=== PATIENT | female | born 1925 | race Caucasian/White ===

== ENCOUNTER 2016-11-29 09:20 | Emergency (ER) | payer MEDICARE, BC ==
[~2016-11-29] VITALS: Ht 152.4 cm; Wt 58.2 kg
[~2016-11-29 09:20] MED LIST: ASPI81TA82 PO; MULT-65 PO
[2016-11-29 09:27] VITALS: BP 152/73; PULSE 73; RESP 16; TEMP 98.3; O2SAT 96
[2016-11-29] MEDS ORDERED: MULT-120 PO (09:43)
[2016-11-29] MEDS ORDERED: ASPI1TAB69 PO (09:43)
[2016-11-29] MEDS ORDERED: SODIUM CHLORIDE 0.9% FLUSH 10 ML FLUSH IV FLUSH PRN (09:45)
[2016-11-29 09:52] VITALS: BP 164/80; PULSE 71; RESP 18; O2SAT 98
--- NOTE | 2016-11-29 09:53 | PD ---
HPI Chief Complaint: Back/ Neck Pain or Injury Time Seen by Provider: 09:37 Travel History International Travel<30 days: No Contact w/Intl Traveler<30days: No Traveled to known affect area: No History of Present Illness HPI This is an 89-year-old female who presents to the emergency department with onset of right back pain, constant, moderate severity worse with movement of her leg that started when she was sleeping overnight. She says her pain subsided some when she took 2 aspirin but then she developed lightheadedness and felt like she was going to faint which concerned her so she came to the emergency department. She denies any chest pain, shortness of breath, vomiting or fever. She denies any numbness or weakness of her legs. PFSH Past Medical History Hx Anticoagulant Therapy: Yes (asa 81 mg) Diminished Hearing: No Inguinal Hernia: Yes ?: Not Menopausal: Yes Past Surgical History Abdominal Surgery: Yes (left inguinal hernia) Social History Alcohol Use: Yes (occ) Tobacco Use: No (QUIT 40YRS AGO) Substance Use: No Allergies-Medications (Allergen,Severity, Reaction): Coded Allergies: Biaxin (Verified Allergy, Severe, RASH, 11/29/16) Lipitor (Verified Allergy, Severe, LEG PAIN, 11/29/16) Zetia (Verified Allergy, Intermediate, TACHYCARDIA, 11/29/16) Omeprazole (Verified Allergy, Unknown, unknown, 11/29/16) Cipro (Verified Adverse Reaction, Severe, "DIZZY", 11/29/16) Meclizine (Verified Adverse Reaction, Intermediate, MORE DIZZY , 11/29/16) Red Dyes - Various (Verified Adverse Reaction, Intermediate, DIZZY/RASH, ) Uncoded Allergies: PCE (Allergy, Severe, RASH, 11/09/11) Q TUSS (Allergy, Severe, NAUSEA, 11/09/11) Reported Meds & Prescriptions Reported Meds & Active Scripts Active Reported Aspirin 81 Mg Tabdr 81 Mg PO DAILY Multivitamin Women (Multiple Vitamins W/ Minerals) 1 Tab Tab 1 Tab PO DAILY Review of Systems Except as stated in HPI: all other systems reviewed are Neg Physical Exam Narrative GENERAL:Well appearing, no acute distress SKIN: Focused skin assessment warm and dry. HEAD: Atraumatic. Normocephalic. EYES: Pupils equal and round. No injection or drainage. ENT: Moist mucous membranes NECK: Trachea midline. CARDIOVASCULAR: Regular rate and rhythm. No murmur appreciated. RESPIRATORY: Clear to auscultation. Breath sounds equal bilaterally. GASTROINTESTINAL: Abdomen soft, non-tender, nondistended. MUSCULOSKELETAL: Tender to palpation along the right sacroiliac joint with pain with flexion at the right hip NEUROLOGICAL: Awake and alert. No obvious cranial nerve deficits. Moving all extremities. PSYCHIATRIC: Appropriate mood and affect; insight and judgment normal. Data Data Last Documented VS Vital Signs Date Time Temp Pulse Resp B/P Pulse Ox O2 Delivery O2 Flow Rate FiO2 11/29/16 09:52 71 18 164/80 98 Room Air 11/29/16 09:27 98.3 Orders Complete Blood Count With Diff (11/29/16 09:44) Comprehensive Metabolic Panel (11/29/16 09:44) Ct Abd/Pel W/O Iv Contrast (11/29/16 09:44) Iv Access Insert/Monitor (11/29/16 09:44) Ecg Monitoring (11/29/16 09:44) Oximetry (11/29/16 09:44) Sodium Chloride 0.9% Flush (Ns Flush) (11/29/16 09:45) Ct Lumb Spine W/O Contrast (11/29/16 ) Labs Laboratory Tests Test 11/29/16 09:50 White Blood Count 9.5 TH/MM3 Red Blood Count 4.56 MIL/MM3 Hemoglobin 13.0 GM/DL Hematocrit 39.3 % Mean Corpuscular Volume 86.2 FL Mean Corpuscular Hemoglobin 28.6 PG Mean Corpuscular Hemoglobin 33.2 % Concent Red Cell Distribution Width 13.6 % Platelet Count 216 TH/MM3 Mean Platelet Volume 8.9 FL Neutrophils (%) (Auto) 86.0 % Lymphocytes (%) (Auto) 5.9 % Monocytes (%) (Auto) 4.4 % Eosinophils (%) (Auto) 0.8 % Basophils (%) (Auto) 2.9 % Neutrophils # (Auto) 8.1 TH/MM3 Lymphocytes # (Auto) 0.6 TH/MM3 Monocytes # (Auto) 0.4 TH/MM3 Eosinophils # (Auto) 0.1 TH/MM3 Basophils # (Auto) 0.3 TH/MM3 CBC Comment DIFF FINAL Differential Comment Sodium Level 141 MEQ/L Potassium Level 4.1 MEQ/L Chloride Level 105 MEQ/L Carbon Dioxide Level 29.3 MEQ/L Anion Gap 7 MEQ/L Blood Urea Nitrogen 15 MG/DL Creatinine 1.30 MG/DL Estimat Glomerular Filtration 39 ML/MIN Rate Random Glucose 146 MG/DL Calcium Level 8.5 MG/DL Total Bilirubin 0.4 MG/DL Aspartate Amino Transf 19 U/L (AST/SGOT) Alanine Aminotransferase 19 U/L (ALT/SGPT) Alkaline Phosphatase 58 U/L Total Protein 7.1 GM/DL Albumin 3.3 GM/DL MDM Medical Decision Making Medical Screen Exam Complete: Yes Emergency Medical Condition: Yes Interpretation(s) Afebrile, no tachycardia, hypertensive No leukocytosis 86% neutrophils Mild renal insufficiency Last 24 hours Impressions Abdomen/Pelvis CT 11/29/16 0944 Signed Impressions: Service Date/Time: November 09:54 - CONCLUSION: 1. The kidneys are unremarkable in appearance with no renal calculi or obstruction. 2. Multiple low attenuation hepatic lesions many of which may represent cysts. One lesion in the dome of the right lobe this could criteria for simple cyst and is indeterminate and could represent a solid mass. 3. Unremarkable bowel gas pattern. Jeremiah Levi MD Lumbar Spine CT 11/29/16 0000 Signed Impressions: Service Date/Time: November 09:54 - CONCLUSION: There is facet arthrosis and mild degenerative disc disease. However, no significant spinal canal stenosis is seen. There is mild neural foraminal narrowing. The bones are undermineralized but no compression fracture is seen. Patricio Parada MD Differential Diagnosis Compression fracture, disc herniation, sacroiliitis, kidney stone, degenerative disc disease Narrative Course This is an 89-year-old female who presents to the emergency department with right lower back pain that radiates down the back of her right leg. I suspect this is a lumbosacral radiculopathy. Given she is reporting some lightheadedness, labs were obtained and a CT abdomen and pelvis and CT lumbar spine were obtained all of which are reassuring. Patient will be discharged home Diagnosis Primary Impression: Lumbosacral radiculopathy Additional Impression: Liver mass Patient Instructions: General Instructions Additional Instructions: If you develop weakness of your legs, difficulty walking, numbness of your legs or your genital or rectal area, loss of your bowel or bladder, or difficulty urinating return to the emergency department immediately. Followup with your primary care physician in one week if your symptoms have not improved. You have a lesion on the dome of your right liver lobe which may be a cyst but should be evaluated by her primary care physician because it could represent a mass Med/Other Pt SpecificInfo: No Change to Meds Disposition: 01 DISCHARGE HOME Condition: Stable Savita Nunn MD Nov 29, 2016 09:53
[2016-11-29 09:57] LABS: AUTOMATED NEUTROPHIL # 8.1 TH/MM3 (1.8-7.7); BASOPHIL # 0.3 TH/MM3 (0-0.2); BASOPHIL % 2.9 % (0.0-2.0); EOSINOPHIL # 0.1 TH/MM3 (0-0.4); EOSINOPHIL % 0.8 % (0.0-4.0); HEMATOCRIT 39.3 % (35.0-46.0); LYMPH % 5.9 % (9.0-44.0); LYMPHOCYTE # 0.6 TH/MM3 (1.0-4.8); MEAN CELL VOLUME 86.2 FL (80.0-100.0); MEAN CORPUSCULAR HEMOGLOBIN 28.6 PG (27.0-34.0); MEAN CORPUSCULAR HGB CONC 33.2 % (32.0-36.0); MONO % 4.4 % (0.0-8.0); PLATELET COUNT 216 TH/MM3 (150-450); RED BLOOD COUNT 4.56 MIL/MM3 (4.00-5.30); RED CELL DISTRIBUTION WIDTH 13.6 % (11.6-17.2); WHITE BLOOD COUNT 9.5 TH/MM3 (4.0-11.0)
[2016-11-29 10:00] LABS: HEMO FLAGS DIFF FINAL
[2016-11-29 10:03] LABS: CHLORIDE 105 MEQ/L (98-107); POTASSIUM 4.1 MEQ/L (3.5-5.1); SODIUM (NA) 141 MEQ/L (136-145)
[2016-11-29 10:06] LABS: ANION GAP 7 MEQ/L (5-15); BICARBONATE 29.3 MEQ/L (21.0-32.0)
[2016-11-29 10:07] LABS: BLOOD UREA NITROGEN 15 MG/DL (7-18)
[2016-11-29 10:09] LABS: ALT (GPT) 19 U/L (10-53)
[2016-11-29 10:10] LABS: AST (GOT) 19 U/L (15-37); GLOMERULAR FILTRATION RATE 39 ML/MIN (>89)
[2016-11-29 10:11] LABS: TOTAL BILIRUBIN ADULT 0.4 MG/DL (0.2-1.0)
[2016-11-29 10:12] LABS: ALKALINE PHOSPHATASE 58 U/L (45-117)
--- NOTE | 2016-11-29 10:34 | RADHPO ---
EXAM DATE/TIME: 11/29/2016 09:54 [facility] COMPARISON: No previous studies available for comparison. INDICATIONS : Right flank and low back pain. ORAL CONTRAST: No oral contrast ingested. RADIATION DOSE: 9.48 CTDIvol (mGy) MEDICAL HISTORY : Hernia, inguinal. SURGICAL HISTORY : None. ENCOUNTER: Initial ACUITY: 1 day PAIN SCALE: 8/10 LOCATION: Right flank TECHNIQUE: Volumetric scanning of the abdomen and pelvis was performed. Using automated exposure control and ad justment of the mA and/or kV according to patient size, radiation dose was kept as low as reasonably achievable to obtain optimal diagnostic quality images. FINDINGS: LOWER LUNGS: The visualized lower lungs are clear. LIVER: Normal in size and shape. There are multiple low attenuation lesions likely representing cysts. The l argest of these is in the left lobe measuring approximately 1.9 x 1.5 cm. There is a higher density l ow attenuation lesion in the dome of the right lobe measuring 3 x 2 cm which does not meet the criter ia for a cyst. The gallbladder is unremarkable in appearance. There is no dilation of the biliary sergio e. No calcified gallstones. SPLEEN: Normal size without lesion. PANCREAS: Within normal limits. KIDNEYS: Normal in size and shape. There is no mass, stone, or hydronephrosis. ADRENAL GLANDS: Within normal limits. VASCULAR: Sclerotic changes are noted with mild dilatation calcification. There is no focal aneurysm. There is mild dilatation of the common iliac arteries as well. BOWEL/MESENTERY: The stomach, small bowel, and colon demonstrate no acute abnormality. There is no free intraperitone al air or fluid. ABDOMINAL WALL: Within normal limits. RETROPERITONEUM: There is no lymphadenopathy. BLADDER: No wall thickening or mass. REPRODUCTIVE: Within normal limits. INGUINAL: There is no lymphadenopathy or hernia. MUSCULOSKELETAL: Within normal limits for patient age. CONCLUSION: 1. The kidneys are unremarkable in appearance with no renal calculi or obstruction. 2. Multiple low attenuation hepatic lesions many of which may represent cysts. One lesion in the dome of the right lobe this could criteria for simple cyst and is indeterminate and could represent a winston id mass. 3. Unremarkable bowel gas pattern. Jeremiah Levi MD on November 29, 2016 at 10:27 Board Certified Radiologist. This report was verified electronically.
--- NOTE | 2016-11-29 11:26 | RADHPO ---
EXAM DATE/TIME: 11/29/2016 09:54 [facility] COMPARISON: CT ABDOMEN & PELVIS W/O CONTRAST, November 29, 2016, 9:54. INDICATIONS : Right flank and low back pain. RADIATION DOSE: ; Reconstructed from previous dataset MEDICAL HISTORY : Hernia, inguinal. SURGICAL HISTORY : None. ENCOUNTER: Initial ACUITY: 1 day PAIN SCALE: 8/10 LOCATION: Right lumbar TECHNIQUE: Volumetric scanning of the lumbar spine was performed. Multiplanar reconstructions in the sagittal, coronal and oblique axial planes were performed. Using automated exposure control and adjustment of the mA and/or kV according to patient size, radiation dose was kept as low as reasonably achievable t o obtain optimal diagnostic quality images. FINDINGS: VERTEBRAE: There is mild height loss of the superior endplate of L3 but no fracture is seen. The bones appear un dermineralized. ALIGNMENT: No anterolisthesis or retrolisthesis is present. T12-L1: No disc herniation, canal stenosis, or neural foraminal stenosis is identified. L1-L2: There is mild facet hypertrophy. No disc herniation, canal stenosis, or neuroforaminal stenosis is vi sualized. L2-L3: There is mild facet and ligamentum flavum hypertrophy. There is a mild diffuse disc bulge. Otherwise, no definite disc herniation, canal stenosis, or neural foraminal narrowing is identified. L3-L4: There is a mild diffuse disc bulge with mild facet and ligamentum flavum hypertrophy. No definite can al stenosis is visualized. There is mild narrowing of the neural foramina. L4-L5: There is a mild diffuse disc bulge with mild facet hypertrophy. No disc herniation or definite canal stenosis is seen. There is mild neural foraminal narrowing bilaterally. L5-S1: There is mild facet hypertrophy. No disc herniation, canal stenosis, or neural foraminal narrowing is visualized. CONCLUSION: There is facet arthrosis and mild degenerative disc disease. However, no significant spinal canal kavitha nosis is seen. There is mild neural foraminal narrowing. The bones are undermineralized but no compre ssion fracture is seen. Patricio Parada MD on November 29, 2016 at 11:16 Board Certified Radiologist. This report was verified electronically.
[2016-11-29 11:51] VITALS: BP 145/88
== END 2016-11-29 12:05 | disposition home or self-care (01) ==
LOC: PHED 09:20
DX: M54.17 Radiculopathy, lumbosacral region (principal); R16.0 Hepatomegaly, not elsewhere classified; R42 Dizziness and giddiness; Z79.01 Long term (current) use of anticoagulants
CPT/HCPCS: 72131; 74176; 80053; 85025

== ENCOUNTER 2016-12-15 10:19 | Emergency (ER) | payer MEDICARE, BC ==
[~2016-12-15] VITALS: Ht 162.6 cm; Wt 58.5 kg
[~2016-12-15 10:19] MED LIST changes: +ASPI1TAB69 PO; -ASPI81TA82 PO; +MULT-120 PO; -MULT-65 PO
[2016-12-15 10:28] VITALS: BP 166/84; PULSE 77; RESP 16; TEMP 98.8; O2SAT 95
[2016-12-15] MEDS ORDERED: ASPI325T PO (11:08)
--- NOTE | 2016-12-15 11:12 | PD ---
HPI . Left leg pain Chief Complaint: Musculoskeletal Complaint Time Seen by Provider: 10:46 Travel History International Travel<30 days: No Contact w/Intl Traveler<30days: No Traveled to known affect area: No History of Present Illness HPI Patient presents complaining with left leg pain. Onset is 2 weeks. Symptoms are getting better. She states that she has been taking aspirin, 2 4 times a day with some relief of her symptoms. However, her symptoms have persisted. She and her family are worried that she has a blood clot. The pain is described as aching and is rated as 5/10. Patient reports no history of cancer. She has not been bedridden or immobilized. She denies any previous history of DVT. PFSH Past Medical History Hx Anticoagulant Therapy: Yes (asa 81mg) Diminished Hearing: No Inguinal Hernia: Yes ?: Not Menopausal: Yes Past Surgical History Abdominal Surgery: Yes (left inguinal hernia) Social History Alcohol Use: Yes (occ) Tobacco Use: No (QUIT 40YRS AGO) Substance Use: No Allergies-Medications (Allergen,Severity, Reaction): Coded Allergies: Biaxin (Verified Allergy, Severe, RASH, 12/15/16) Lipitor (Verified Allergy, Severe, LEG PAIN, 12/15/16) Zetia (Verified Allergy, Intermediate, TACHYCARDIA, 12/15/16) Omeprazole (Verified Allergy, Unknown, unknown, 12/15/16) Cipro (Verified Adverse Reaction, Severe, "DIZZY", 12/15/16) Meclizine (Verified Adverse Reaction, Intermediate, MORE DIZZY , 12/15/16) Red Dyes - Various (Verified Adverse Reaction, Intermediate, DIZZY/RASH, ) Uncoded Allergies: PCE (Allergy, Severe, RASH, 12/15/16) . Q TUSS (Allergy, Severe, NAUSEA, 12/15/16) . Reported Meds & Prescriptions Reported Meds & Active Scripts Active Reported Aspirin 325 Mg Tab 325 Mg PO DAILY Multivitamin Women (Multiple Vitamins W/ Minerals) 1 Tab Tab 1 Tab PO DAILY Review of Systems Cardiovascular: No: Chest Pain or Discomfort Respiratory: No: Shortness of Breath Skin: Positive Lesions Physical Exam Narrative GENERAL: Awake and alert and in no acute distress. SKIN: Warm and dry. She has some scattered skin lesions which look like typical lesions associated with aging. HEAD: Atraumatic. Normocephalic. EYES: Pupils equal and round. NECK: Trachea midline. CARDIOVASCULAR: Regular rate and rhythm. RESPIRATORY: No accessory muscle use. MUSCULOSKELETAL: No obvious deformities. No edema. There is no swelling of her left lower extremity. No pitting edema. No tenderness to palpation along the veins. She does have varicose veins bilaterally. NEUROLOGICAL: Awake and alert. No obvious cranial nerve deficits. Motor grossly within normal limits. Normal speech. PSYCHIATRIC: Appropriate mood and affect; insight and judgment normal. Data Data Last Documented VS Vital Signs Date Time Temp Pulse Resp B/P Pulse Ox O2 Delivery O2 Flow Rate FiO2 12/15/16 10:28 98.8 77 16 166/84 95 Orders Ed Poc Ultrasound (12/15/16 10:47) MDM Medical Decision Making Medical Screen Exam Complete: Yes Emergency Medical Condition: Yes Differential Diagnosis Differential diagnosis of leg pain includes but is not limited to lumbar radiculopathy, arthritis, myalgias, DVT. Narrative Course Patient presents for the evaluation of left lower extremity pain. She her family are concerned that she has a DVT. Wells criteria for DVT is negative. Procedures Procedure Narrative Venous ultrasound of the left lower extremity was done and showed a compressible vein from the left groin to the left popliteal fossa. Diagnosis Primary Impression: Pain in left maddox Patient Instructions: General Instructions, Leg Pain (ED) Additional Instructions: Continue the aspirin Med/Other Pt SpecificInfo: No Change to Meds Disposition: 01 DISCHARGE HOME Condition: Stable Mera Tomas MD December 15, 2016 11:12
== END 2016-12-15 12:01 | disposition home or self-care (01) ==
LOC: PHED 10:19
DX: M79.662 Pain in left lower leg (principal); Z79.82 Long term (current) use of aspirin
CPT/HCPCS: 99283

== ENCOUNTER 2017-05-26 19:30 | Emergency (ER) | payer MEDICARE, BC ==
[~2017-05-26 19:30] MED LIST changes: -ASPI1TAB69 PO; +ASPI325T PO
[2017-05-26 19:35] VITALS: BP 213/91; PULSE 75; RESP 20; TEMP 98.7; O2SAT 99
[2017-05-26] MEDS ORDERED: HYDR25TA5 PO (20:07)
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
[2017-05-26] MEDS ORDERED: HYDROCHLOROTHIAZIDE 25 MG TAB PO ONE (20:15)
[2017-05-26] MEDS ORDERED: MULT-65 PO (20:28)
[2017-05-26] MEDS ORDERED: ASPI325T PO (20:28)
[2017-05-26] MEDS ORDERED: PANT40TA3 PO (20:30)
[2017-05-26 20:42] VITALS: BP 169/81
[2017-05-26] MEDS ORDERED: ONDANSETRON ODT 4 MG TAB PO ONE (20:45)
[2017-06-05] MEDS ORDERED: ASPI81TA11 PO (11:52)
[2017-06-05] MEDS ORDERED: CLON.1 PO (11:52)
[2017-06-05] MEDS ORDERED: HYDR-3799 PO (11:52)
== END 2017-05-26 21:24 | disposition home or self-care (01) ==
LOC: PHED 19:30
DX: I10 Essential (primary) hypertension (principal); Z87.891 Personal history of nicotine dependence
CPT/HCPCS: 99283

== ENCOUNTER 2017-06-03 21:58 | Observation (INO) | payer MEDICARE, BC ==
[~2017-06-03] VITALS: Ht 152.4 cm; Wt 58.0 kg
[~2017-06-03 21:58] MED LIST changes: +HYDR25TA5 PO; -MULT-120 PO; +MULT-65 PO; +PANT40TA3 PO
[2017-06-03 21:59] VITALS: BP 237/109; PULSE 68; RESP 18; TEMP 97.8; O2SAT 97
--- NOTE | 2017-06-03 22:26 | PD ---
Physical Exam Date Seen by Provider: Jun 03, 2017 Time Seen by Provider: 22:25 Narrative 89-year-old white female presents to emergency department with complaint of elevated blood pressure today. She states that her blood pressure was normal yesterday. She started feeling ill today. She's had a headache, congestion or ears, and general malaise. She's been feeling hot and cold. She also states that she would like to have her pancreas checked because she's had a history of pancreatitis and has not been able to follow-up with GI and have an upper endoscopy. She denies any fever or chills. No nausea vomiting today. No abdominal pain. No urine symptoms. No chest pain or shortness of breath. No focal numbness, tingling or weakness. Vital signs reviewed. Pt waiting for bed placement. Data Data Last Documented VS Vital Signs Date Time Temp Pulse Resp B/P (MAP) Pulse Ox O2 Delivery O2 Flow Rate FiO2 06/03/17 21:59 97.8 68 18 237/109 (151) 97 Room Air [facility] Medical Record Reviewed: No Supervised Visit with ROSELIA: Kike Martin Jun 03, 2017 22:26
--- NOTE | 2017-06-03 22:26 | PD ---
Physical Exam Date Seen by Provider: Jun 03, 2017 Time Seen by Provider: 22:25 Narrative 89-year-old white female presents to emergency department with complaint of elevated blood pressure today. She states that her blood pressure was normal yesterday. She started feeling ill today. She's had a headache, congestion or ears, and general malaise. She's been feeling hot and cold. She also states that she would like to have her pancreas checked because she's had a history of pancreatitis and has not been able to follow-up with GI and have an upper endoscopy. She denies any fever or chills. No nausea vomiting today. No abdominal pain. No urine symptoms. No chest pain or shortness of breath. No focal numbness, tingling or weakness. Vital signs reviewed. Pt waiting for bed placement. Data Data Last Documented VS Vital Signs Date Time Temp Pulse Resp B/P (MAP) Pulse Ox O2 Delivery O2 Flow Rate FiO2 06/03/17 21:59 97.8 68 18 237/109 (151) 97 Room Air [facility] Medical Record Reviewed: No Supervised Visit with ROSELIA: Kike Martin Jun 03, 2017 22:26
--- NOTE | 2017-06-03 22:26 | PD ---
Physical Exam Date Seen by Provider: Jun 03, 2017 Time Seen by Provider: 22:25 Narrative 89-year-old white female presents to emergency department with complaint of elevated blood pressure today. She states that her blood pressure was normal yesterday. She started feeling ill today. She's had a headache, congestion or ears, and general malaise. She's been feeling hot and cold. She also states that she would like to have her pancreas checked because she's had a history of pancreatitis and has not been able to follow-up with GI and have an upper endoscopy. She denies any fever or chills. No nausea vomiting today. No abdominal pain. No urine symptoms. No chest pain or shortness of breath. No focal numbness, tingling or weakness. Vital signs reviewed. Pt waiting for bed placement. Data Data Last Documented VS Vital Signs Date Time Temp Pulse Resp B/P (MAP) Pulse Ox O2 Delivery O2 Flow Rate FiO2 06/03/17 21:59 97.8 68 18 237/109 (151) [address] [facility] Medical Record Reviewed: No Supervised Visit with ROSELIA: Kike Martin Jun 03, 2017 22:26
[2017-06-03 23:01] VITALS: BP 207/98; PULSE 74; RESP 16; O2SAT 97
[2017-06-03] MEDS ORDERED: ONDANSETRON HCL 4 MG/2 ML VIAL IVP ONE ×2 (23:15)
[2017-06-03] MEDS ORDERED: MORPHINE SULFATE 4 MG/ML INJ IV PUSH ONE ×2 (23:15)
[2017-06-03] MEDS ORDERED: SODIUM CHLORIDE 0.9% FLUSH 10 ML FLUSH IV FLUSH PRN ×2 (23:15)
[2017-06-03 23:30] LABS: AUTOMATED NEUTROPHIL # 2.8 TH/MM3 (1.8-7.7); BASOPHIL % 0.8 % (0.0-2.0); EOSINOPHIL # 0.1 TH/MM3 (0-0.4); EOSINOPHIL % 2.1 % (0.0-4.0); HEMATOCRIT 36.9 % (35.0-46.0); HEMOGLOBIN 12.3 GM/DL (11.6-15.3); LYMPH % 29.2 % (9.0-44.0); LYMPHOCYTE # 1.4 TH/MM3 (1.0-4.8); MEAN CELL VOLUME 87.4 FL (80.0-100.0); MEAN CORPUSCULAR HEMOGLOBIN 29.1 PG (27.0-34.0); MEAN CORPUSCULAR HGB CONC 33.3 % (32.0-36.0); MEAN PLATELET VOLUME 9.3 FL (7.0-11.0); MONO % 7.7 % (0.0-8.0); MONOCYTE # 0.4 TH/MM3 (0-0.9); NEUT % 60.2 % (16.0-70.0); PLATELET COUNT 208 TH/MM3 (150-450); RED BLOOD COUNT 4.23 MIL/MM3 (4.00-5.30); RED CELL DISTRIBUTION WIDTH 14.3 % (11.6-17.2); WHITE BLOOD COUNT 4.6 TH/MM3 (4.0-11.0)
[2017-06-03 23:36] VITALS: BP 175/85; PULSE 65; RESP 16; O2SAT 96; O2SAT 99
--- NOTE | 2017-06-03 23:59 | PD ---
HPI Chief Complaint: Hypertension Time Seen by Provider: 22:56 Travel History International Travel<30 days: No Contact w/Intl Traveler<30days: No Traveled to known affect area: No History of Present Illness HPI 89-year-old female arrives by private auto. She reports high blood pressure today. Additional complaints include a vague sense of discomfort in the epigastrium which she attributes to pancreatitis and states that she is due for an endoscopy. She also reports a headache, potentially right otitis media and generalized weakness. She denies fever. Has no history of hypertension. PFSH Past Medical History Hx Anticoagulant Therapy: Yes (ASA) High Cholesterol: Yes Diminished Hearing: No Hypertension: Yes Inguinal Hernia: Yes Tetanus Vaccination: > 5 Years LMP: menapause Menopausal: Yes Past Surgical History Abdominal Surgery: Yes (left inguinal hernia) Social History Alcohol Use: No Tobacco Use: No (QUIT 40YRS AGO) Substance Use: No Allergies-Medications (Allergen,Severity, Reaction): Coded Allergies: atorvastatin (Unverified Allergy, Severe, LEG PAIN, 05/26/17) clarithromycin (Unverified Allergy, Severe, RASH, 05/26/17) ezetimibe (Unverified Allergy, Intermediate, TACHYCARDIA, 05/26/17) omeprazole (Unverified Allergy, Unknown, unknown, 05/26/17) ciprofloxacin (Unverified Adverse Reaction, Severe, "DIZZY", 05/26/17) meclizine (Unverified Adverse Reaction, Intermediate, MORE DIZZY , ) red dye (Unverified Adverse Reaction, Intermediate, DIZZY/RASH, 05/26/17) amlodipine (Verified Adverse Reaction, Unknown, Dizziness, 05/26/17) lightheaded lisinopril (Verified Adverse Reaction, Unknown, Dizziness, 05/26/17) Uncoded Allergies: PCE (Allergy, Severe, RASH, 12/15/16) . Q TUSS (Allergy, Severe, NAUSEA, 12/15/16) . Reported Meds & Prescriptions Reported Meds & Active Scripts Active Hydrochlorothiazide 25 Mg Tab 25 Mg PO DAILY 30 Days Reported Pantoprazole (Pantoprazole Sodium) 40 Mg Tab 40 Mg PO DAILY Multi-Vitamin Daily (Multiple Vitamin) 1 Tab Tab 1 Tab PO DAILY Aspirin 325 Mg Tab 325 Mg PO DAILY Aspirin 325 Mg Tab 325 Mg PO DAILY Review of Systems Except as stated in HPI: all other systems reviewed are Neg General / Constitutional: No: Fever Cardiovascular: No: Chest Pain or Discomfort Respiratory: No: Shortness of Breath, Wheezing Physical Exam Narrative GENERAL: Well-nourished well-developed 89-year-old female no acute distress SKIN: Warm and dry. HEAD: Atraumatic. Normocephalic. EYES: Pupils equal and round. No scleral icterus. No injection or drainage. ENT: No nasal bleeding or discharge. Mucous membranes pink and moist. NECK: Trachea midline. No JVD. CARDIOVASCULAR: Regular rate and rhythm. RESPIRATORY: No accessory muscle use. Clear to auscultation. Breath sounds equal bilaterally. GASTROINTESTINAL: Abdomen soft, non-tender, nondistended. Hepatic and splenic margins not palpable. MUSCULOSKELETAL: Extremities without clubbing, cyanosis, or edema. No obvious deformities. NEUROLOGICAL: Awake and alert. No obvious cranial nerve deficits. Motor grossly within normal limits. Five out of 5 muscle strength in the arms and legs. Normal speech. PSYCHIATRIC: Appropriate mood and affect; insight and judgment normal. Data Data Last Documented VS Vital Signs Date Time Temp Pulse Resp B/P (MAP) Pulse Ox O2 Delivery O2 Flow Rate FiO2 06/03/17 23:36 16 99 Room Air 06/03/17 23:36 65 06/03/17 21:59 97.8 Orders Orders Complete Blood Count With Diff (06/03/17 23:04) Comprehensive Metabolic Panel (06/03/17 23:04) Lipase (06/03/17 23:04) Urinalysis - C+S If Indicated (06/03/17 23:04) Iv Access Insert/Monitor (06/03/17 23:04) Ecg Monitoring (06/03/17 23:04) Oximetry (06/03/17 23:04) Ondansetron Inj (Zofran Inj) (06/03/17 23:15) Sodium Chloride 0.9% Flush (Ns Flush) (06/03/17 23:15) Morphine Inj (Morphine Inj) (06/03/17 23:15) Admit Order (Ed Use Only) (06/04/17 ) Vital Signs (Adult) Q4H (06/04/17 01:36) Activity Bed Rest (06/04/17 01:36) Labs Laboratory Tests Test 06/03/17 23:25 06/04/17 00:50 White Blood Count 4.6 TH/MM3 Red Blood Count 4.23 MIL/MM3 Hemoglobin 12.3 GM/DL Hematocrit 36.9 % Mean Corpuscular Volume 87.4 FL Mean Corpuscular Hemoglobin 29.1 PG Mean Corpuscular Hemoglobin Concent 33.3 % Red Cell Distribution Width 14.3 % Platelet Count 208 TH/MM3 Mean Platelet Volume 9.3 FL Neutrophils (%) (Auto) 60.2 % Lymphocytes (%) (Auto) 29.2 % Monocytes (%) (Auto) 7.7 % Eosinophils (%) (Auto) 2.1 % Basophils (%) (Auto) 0.8 % Neutrophils # (Auto) 2.8 TH/MM3 Lymphocytes # (Auto) 1.4 TH/MM3 Monocytes # (Auto) 0.4 TH/MM3 Eosinophils # (Auto) 0.1 TH/MM3 Basophils # (Auto) 0.0 TH/MM3 CBC Comment DIFF FINAL Differential Comment Blood Urea Nitrogen 19 MG/DL Creatinine 1.07 MG/DL Random Glucose 90 MG/DL Total Protein 7.1 GM/DL Albumin 3.6 GM/DL Calcium Level 8.8 MG/DL Alkaline Phosphatase 51 U/L Aspartate Amino Transf (AST/SGOT) 20 U/L Alanine Aminotransferase (ALT/SGPT) 18 U/L Total Bilirubin 0.4 MG/DL Sodium Level 131 MEQ/L Potassium Level 3.9 MEQ/L Chloride Level 96 MEQ/L Carbon Dioxide Level 24.8 MEQ/L Anion Gap 10 MEQ/L Estimat Glomerular Filtration Rate 48 ML/MIN B-Type Natriuretic Peptide 33 PG/ML Lipase 508 U/L Urine Color COLORLESS Urine Turbidity CLEAR Urine pH 5.0 Urine Specific Huger 1.001 Urine Protein NEG mg/dL Urine Glucose (UA) NEG mg/dL Urine Ketones NEG mg/dL Urine Occult Blood TRACE Urine Nitrite NEG Urine Bilirubin NEG Urine Urobilinogen LESS THAN 2.0 MG/DL Urine Leukocyte Esterase NEG Urine RBC 1 /hpf Urine WBC LESS THAN 1 /hpf Urine Squamous Epithelial Cells <1 /hpf Microscopic Urinalysis Comment CULT NOT INDICATED MDM Medical Decision Making Medical Screen Exam Complete: Yes Emergency Medical Condition: Yes Medical Record Reviewed: Yes Differential Diagnosis pancreatitis, uti, electrolyte imbalance, anemia, renal failure, PNA Narrative Course BP decreased to 174/90 CBC & BMP Diagram 06/03/17 23:25 Total Protein 7.1, Albumin 3.6, Calcium Level 8.8, Alkaline Phosphatase 51, Aspartate Amino Transf (AST/SGOT) 20, Alanine Aminotransferase (ALT/SGPT) 18, Total Bilirubin 0.4 UA: no UTI Lipase 508 Pt reports inability to get outpatient follow up and states she is due for endoscopy/ercp. With elevation of lipase, pt may benefit from admission for ERCP. NO sign of infectious pancreatitis at time of admission. d/w Dr Rees for [facility] advised no [facility] admissions Diagnosis Primary Impression: Pancreatitis Qualified Codes: K85.90 - Acute pancreatitis without necrosis or infection, unspecified Admitting Information Admitting Physician Requests: Observation Ludwin Chávez MD Jun 03, 2017 23:59
[2017-06-04 00:05] LABS: ALBUMIN 3.6 GM/DL (3.4-5.0); ALT (GPT) 18 U/L (10-53); AST (GOT) 20 U/L (15-37); BICARBONATE 24.8 MEQ/L (21.0-32.0); BLOOD UREA NITROGEN 19 MG/DL (7-18); CALCIUM 8.8 MG/DL (8.5-10.1); CHLORIDE 96 MEQ/L (98-107); CREATININE 1.07 MG/DL (0.50-1.00); GLOMERULAR FILTRATION RATE 48 ML/MIN (>89); GLUCOSE,RANDOM 90 MG/DL (74-106); LIPASE 508 U/L (73-393); SODIUM (NA) 131 MEQ/L (136-145)
[2017-06-04 00:07] LABS: ALKALINE PHOSPHATASE 51 U/L (45-117); TOTAL BILIRUBIN ADULT 0.4 MG/DL (0.2-1.0); TOTAL PROTEIN 7.1 GM/DL (6.4-8.2)
[2017-06-04 00:59] LABS: BILIRUBIN, URINE NEG (NEG); BLOOD, URINE TRACE (NEG); GLUCOSE,URINE NEG (NEG); KETONE, URINE NEG (NEG); NITRITE,URINE NEG (NEG); SQUAMOUS EPITHELIAL CELL URINE <1 /hpf (0-5); URINE COLOR COLORLESS (YELLW/STRAW); URINE LEUKOCYTE ESTERASE NEG (NEG)
[2017-06-04] MEDS ORDERED: SODIUM CHLORIDE 0.9% FLUSH 10 ML FLUSH IV FLUSH PRN ×2 (01:45)
[2017-06-04] MEDS ORDERED: NALOXONE HCL 0.4 MG/ML AMP IV PUSH PRN ×2 (01:45)
[2017-06-04] MEDS ORDERED: SENNOSIDES 8.6 MG TAB PO PRN ×2 (01:45)
[2017-06-04] MEDS ORDERED: BISACODYL 10 MG SUPP RECTAL PRN ×2 (01:45)
[2017-06-04] MEDS ORDERED: ONDANSETRON HCL 4 MG/2 ML VIAL IVP PRN ×2 (01:45)
[2017-06-04] MEDS ORDERED: MAGNESIUM HYDROXIDE SUSP 30 ML CUP PO PRN ×2 (01:45)
[2017-06-04] MEDS ORDERED: LACTULOSE SYRUP 20 GM/30 ML CUP PO PRN ×2 (01:45)
[2017-06-04] MEDS: SODIUM CHLOR 0.9% 1000 ML INJ 1,000 ML IV SCH ×6 (03:01→21:14)
--- NOTE | 2017-06-04 03:44 | HHI.HP ---
[facility] Service [facility] Primary Care Physician Jason Berman MD Admission Diagnosis Pancreatitis Diagnoses: Travel History International Travel<30 Days: No Contact w/Intl Traveler <30 Da: No Traveled to Known Affected Are: No History of Present Illness 89-year-old female who presents to the ER due to systolic blood pressure measured at home of 205, found to be 235 systolic sensation to ER. She also reports several week history of vague intermittent epigastric abdominal discomfort, nausea, decreased appetite. She reports some chills she feels due to the weather, however no fevers. Denies any chest pain. She says she was found to have liver cysts on outside imaging, was supposed to have ERCP, but has not followed up yet. patient does have a past history of pancreatitis. Review of Systems Except as stated in HPI: all other systems reviewed are Neg Past Family Social History Past Medical History Hyperlipidemia. Not on medication Pancreatitis. Hypertension. Patient discontinued medication several weeks ago due to thinking it made her feel foggy. Fogginess resolved. Past Surgical History Left inguinal hernia repair Reported Medications Reported Meds & Active Scripts Active Hydrochlorothiazide 25 Mg Tab 25 Mg PO DAILY 30 Days Reported Pantoprazole (Pantoprazole Sodium) 40 Mg Tab 40 Mg PO DAILY Multi-Vitamin Daily (Multiple Vitamin) 1 Tab Tab 1 Tab PO DAILY Aspirin 325 Mg Tab 325 Mg PO DAILY Aspirin 325 Mg Tab 325 Mg PO DAILY Allergies: Coded Allergies: atorvastatin (Unverified Allergy, Severe, LEG PAIN, 05/26/17) clarithromycin (Unverified Allergy, Severe, RASH, 05/26/17) ezetimibe (Unverified Allergy, Intermediate, TACHYCARDIA, 05/26/17) omeprazole (Unverified Allergy, Unknown, unknown, 05/26/17) ciprofloxacin (Unverified Adverse Reaction, Severe, "DIZZY", 05/26/17) meclizine (Unverified Adverse Reaction, Intermediate, MORE DIZZY , ) red dye (Unverified Adverse Reaction, Intermediate, DIZZY/RASH, 05/26/17) amlodipine (Verified Adverse Reaction, Unknown, Dizziness, 05/26/17) lightheaded lisinopril (Verified Adverse Reaction, Unknown, Dizziness, 05/26/17) Uncoded Allergies: PCE (Allergy, Severe, RASH, 12/15/16) . Q TUSS (Allergy, Severe, NAUSEA, 12/15/16) . Family History Mother from [place]. Father from stroke at age 69. Social History Patient quit smoking 40 years ago. Denies any alcohol use. Denies any illicit drugs. Physical Exam Vital Signs Vital Signs Date Time Temp Pulse Resp B/P (MAP) Pulse Ox O2 Delivery O2 Flow Rate FiO2 06/04/17 03:10 06/03/17 23:36 16 99 Room Air 06/03/17 23:36 65 16 175/85 (115) 96 Room Air 06/03/17 23:01 74 16 207/98 (134) 97 Room Air 06/03/17 21:59 97.8 68 18 237/109 (151) 97 Room Air Physical Exam GENERAL: This is a well-nourished, well-developed patient, appears uncomfortable. Alert and oriented 3. SKIN: No rashes, ecchymoses or lesions. Cool and dry. HEAD: Atraumatic. Normocephalic. No temporal or scalp tenderness. EYES: Pupils equal round and reactive. Extraocular motions intact. No scleral icterus. No injection or drainage. ENT: Nose without bleeding, purulent drainage or septal hematoma. Throat without erythema, tonsillar hypertrophy or exudate. Uvula midline. Airway patent. NECK: Trachea midline. No JVD or lymphadenopathy. Supple, nontender, no meningeal signs. CARDIOVASCULAR: Regular rate and rhythm without murmurs, gallops, or rubs. RESPIRATORY: Clear to auscultation. Breath sounds equal bilaterally. No wheezes , rales, or rhonchi. GASTROINTESTINAL: Abdomen soft,. Epigastric tenderness to moderate palpation, which patient reports has been present for several weeks. No hepato- splenomegaly, or palpable masses. No guarding. MUSCULOSKELETAL: Extremities without clubbing, cyanosis, or edema. No joint tenderness, effusion, or edema noted. No calf tenderness. Negative Homans sign bilaterally. NEUROLOGICAL: Awake and alert. Cranial nerves II through XII intact. Motor and sensory grossly within normal limits. Five out of 5 muscle strength in all muscle groups. Normal speech. Laboratory Laboratory Tests Test 06/03/17 23:25 06/04/17 00:50 White Blood Count 4.6 Red Blood Count 4.23 Hemoglobin 12.3 Hematocrit 36.9 Mean Corpuscular Volume 87.4 Mean Corpuscular Hemoglobin 29.1 Mean Corpuscular Hemoglobin Concent 33.3 Red Cell Distribution Width 14.3 Platelet Count 208 Mean Platelet Volume 9.3 Neutrophils (%) (Auto) 60.2 Lymphocytes (%) (Auto) 29.2 Monocytes (%) (Auto) 7.7 Eosinophils (%) (Auto) 2.1 Basophils (%) (Auto) 0.8 Neutrophils # (Auto) 2.8 Lymphocytes # (Auto) 1.4 Monocytes # (Auto) 0.4 Eosinophils # (Auto) 0.1 Basophils # (Auto) 0.0 CBC Comment DIFF FINAL Differential Comment Blood Urea Nitrogen 19 Creatinine 1.07 Random Glucose 90 Total Protein 7.1 Albumin 3.6 Calcium Level 8.8 Alkaline Phosphatase 51 Aspartate Amino Transf (AST/SGOT) 20 Alanine Aminotransferase (ALT/SGPT) 18 Total Bilirubin 0.4 Sodium Level 131 Potassium Level 3.9 Chloride Level 96 Carbon Dioxide Level 24.8 Anion Gap 10 Estimat Glomerular Filtration Rate 48 B-Type Natriuretic Peptide 33 Lipase 508 Urine Color COLORLESS Urine Turbidity CLEAR Urine pH 5.0 Urine Specific Haskell 1.001 Urine Protein NEG Urine Glucose (UA) NEG Urine Ketones NEG Urine Occult Blood TRACE Urine Nitrite NEG Urine Bilirubin NEG Urine Urobilinogen LESS THAN 2.0 Urine Leukocyte Esterase NEG Urine RBC 1 Urine WBC LESS THAN 1 Urine Squamous Epithelial Cells <1 Microscopic Urinalysis Comment CULT NOT INDICATED Result Diagram: 06/03/17232406/03/172324 Caprini VTE Risk Assessment Caprini VTE Risk Assessment: Mod/High Risk (score >= 2) Caprini Risk Assessment Model Point Value = 1 Point Value = 2 Point Value = 3 Point Value = 5 Age 41-60 Minor surgery BMI > 25 kg/m2 Swollen legs Varicose veins or History of unexplained or recurrent spontaneous Oral contraceptives or hormone replacement Sepsis (< 1 month) Serious lung disease, including pneumonia (< 1 month) Abnormal pulmonary function Acute myocardial infarction Congestive heart failure (< 1 month) History of inflammatory bowel disease Medical patient at bed rest Age 61-74 Arthroscopic surgery Major open surgery (> 45 min) Laparoscopic surgery (> 45 min) Malignancy Confined to bed (> 72 hours) Immobilizing plaster cast Central venous access Age >= 75 History of VTE Family history of VTE Factor V Leiden Prothrombin [id number] Lupus anticoagulant Anticardiolipin antibodies Elevated serum homocysteine Heparin-induced thrombocytopenia Other congenital or acquired thrombophilia Stroke (< 1 month) Elective arthroplasty Hip, pelvis, or leg fracture Acute spinal cord injury (< 1 month) Prophylaxis Regimen Total Risk Factor Score Risk Level Prophylaxis Regimen 0-1 Low Early ambulation 2 Moderate Order ONE of the following: *Sequential Compression Device (SCD) *Heparin 5000 units SQ BID 3-4 Higher Order ONE of the following medications: *Heparin 5000 units SQ TID *Enoxaparin/Lovenox 40 mg SQ daily (WT < 150 kg, CrCl > 30 mL/min) *Enoxaparin/Lovenox 30 mg SQ daily (WT < 150 kg, CrCl > 10-29 mL/min) *Enoxaparin/Lovenox 30 mg SQ BID (WT < 150 kg, CrCl > 30 mL/min) AND/OR *Sequential Compression Device (SCD) 5 or more Highest Order ONE of the following medications: *Heparin 5000 units SQ TID (Preferred with Epidurals) *Enoxaparin/Lovenox 40 mg SQ daily (WT < 150 kg, CrCl > 30 mL/min) *Enoxaparin/Lovenox 30 mg SQ daily (WT < 150 kg, CrCl > 10-29 mL/min) *Enoxaparin/Lovenox 30 mg SQ BID (WT < 150 kg, CrCl > 30 mL/min) AND *Sequential Compression Device (SCD) Assessment and Plan Assessment and Plan //Accelerated hypertension. -Systolic blood pressure to 37 on admission. -With vague complaints of fogginess with blood pressure meds, would like to avoid. -Clonidine when necessary for systolic blood pressure over 180. Continue to monitor. //Recurrent pancreatitis -Lipase elevated in the 500s. Patient has outpatient imaging with liver cysts. -With decreased appetite, intermittent nausea, vague abdominal pain. -IV fluids. Antiemetics as necessary. -Consult gastroenterology for evaluation. //Hypovolemic Hyponatremia. //Dehydration. BUN 19 - Sodium 131 -Urinalysis with specific gravity of 1.001 however. Does not make sense. We' ll order serum and urine osmolality, urine sodium. -IV fluids as above. Continue to monitor. Discussed Condition With Patient, nurse, ED physician. Skip Rees MD Jun 04, 2017 03:43
[2017-06-04 04:38] VITALS: BP 139/65; PULSE 68; RESP 18; TEMP 98; O2SAT 98
[2017-06-04 04:53] LABS: CREATININE, RANDOM URINE LESS THAN 5.0 MG/DL; SODIUM,RANDOM URINE 29 MEQ/L
[2017-06-04 05:16] LABS: OSMOLALITY,URINE 106 MOSM/KG (300-1300)
[2017-06-04 05:45] LABS: INTERNATIONAL NORMALIZED RATIO 1.1 RATIO; PROTHROMBIN TIME - PATIENT 12.2 SEC (9.8-11.6)
[2017-06-04 08:19] VITALS: BP 164/76; PULSE 73; RESP 22; TEMP 98.6; O2SAT 98
[2017-06-04] MEDS: SODIUM CHLORIDE 0.9% FLUSH 10 ML FLUSH IV FLUSH SCH ×4 (08:58→21:14)
[2017-06-04] MEDS: ASPIRIN 325 MG TAB PO SCH ×2 (08:58)
--- NOTE | 2017-06-04 10:03 | HHI.PR ---
Subjective Remarks Follow up for pancreatitis, accelerated hypertension. The patient reports an episode of epigastric to umbilical pain today, described as dull, associated with nausea but no vomiting, went away on its own. Last BM 2 days ago, described as hard formed nonbloody stool. Denies any fevers/chills. She states she just continues to feel uncomfortable, and she is sick of feeling this way. She has had issues getting into see Dr. Kunz due to lack of transportation to [facility]. In regards to her BP, the patient states she has a machine at home, checks her BP daily, and it is usually very well controlled. She states her blood pressure went up to over 200 yesterday after she became very upset that she couldn't get into see the doctor and she continued to feel miserable. She states she has a BP med in her purse that she takes as needed. She has tried many different medications in the past however all of them made her very foggy and dizzy at times. She adamantly does not want to start on a daily antihypertensive secondary to her prior experience. She states when she's not upset or in pain, her blood pressure is usually perfect. Objective Vitals Vital Signs Date Time Temp Pulse Resp B/P (MAP) Pulse Ox O2 Delivery O2 Flow Rate FiO2 06/04/17 08:19 98.6 73 22 164/76 (105) 98 06/04/17 04:38 98.0 68 18 139/65 (89) 98 06/04/17 03:10 06/03/17 23:36 16 99 Room Air 06/03/17 23:36 65 16 175/85 (115) 96 Room Air 06/03/17 23:01 74 16 207/98 (134) 97 Room Air 06/03/17 21:59 97.8 68 18 237/109 (151) 97 Room Air I/O 06/03/17 06/03/17 06/03/17 06/04/17 06/04/17 06/04/17 07:00 15:00 23:00 07:00 15:00 23:00 Intake Total 240 ml Balance 240 ml Intake Oral 240 ml # Voids 4 Result Diagram: 06/03/17232406/03/172324 Objective Remarks GENERAL: Well-nourished, well-developed pleasant elderly female patient in NAD. SKIN: Warm and dry. No rash. HEENT: Normocephalic. Atraumatic.Pupils equal and round. Mucous membranes pink and moist. CARDIOVASCULAR: Regular rate and rhythm. S1, S2 noted. No murmur appreciated. RESPIRATORY: No accessory muscle use. Clear to auscultation. Breath sounds equal bilaterally. GASTROINTESTINAL: Abdomen soft, non-tender, nondistended. Normoactive bowel sounds x4. MUSCULOSKELETAL: No obvious deformities. Extremities without clubbing, cyanosis , or edema. NEUROLOGICAL: Awake and alert. No obvious cranial nerve deficits. Motor grossly within normal limits. Normal speech. PSYCHIATRIC: Appropriate mood and affect; insight and judgment normal. Medications and IVs Current Medications Medications (Trade) Dose Ordered Sig/Berta Route Start Time Stop Time Status Last Admin (Catapres) 0.1 mg Q6H PRN PO 06/04/17 01:45 (Aspirin) 325 mg DAILY PO 06/04/17 09:00 06/04/17 08:58 Sodium Chloride 1,000 ml @ 100 mls/hr Q10H IV 06/04/17 01:39 06/04/17 03:01 (NS Flush) 2 ml UNSCH PRN IV FLUSH 06/04/17 01:45 (NS Flush) 2 ml BID IV FLUSH 06/04/17 09:00 06/04/17 08:58 (Zofran Inj) 4 mg Q6H PRN IVP 06/04/17 01:45 (Narcan Inj) 0.4 mg UNSCH PRN IV PUSH 06/04/17 01:45 (Milk Of Magnesia Liq) 30 ml Q12H PRN PO 06/04/17 01:45 (Senokot) 17.2 mg Q12H PRN PO 06/04/17 01:45 (Dulcolax Supp) 10 mg DAILY PRN RECTAL 06/04/17 01:45 (Lactulose Liq) 30 ml DAILY PRN PO 06/04/17 01:45 A/P Assessment and Plan 89-year-old female with history of hypertension, hyperlipidemia, and recurrent pancreatitis presents with epigastric pain, nausea, decreased appetite, and elevated blood pressure. Accelerated hypertension: BP 237/109 upon admission. -Patient has complaints of fogginess/dizziness with blood pressure meds and she would adamantly like to avoid if possible -Patient does check her BP daily and is usually wnl; she also has as needed medication when her BP does become elevated -Clonidine prn for systolic blood pressure over 180. -Continue to monitor. -Outpatient f/up with PCP Recurrent pancreatitis: unclear etiology. Lipase elevated in the 500s. Patient has outpatient imaging with liver cysts. With decreased appetite, intermittent nausea, vague abdominal pain. -Supportive treatment with IV fluids. Antiemetics as necessary. -Consult gastroenterology for evaluation, patient has been recently referred to Dr. Kunz Hypovolemic Hyponatremia: Dehydration. BUN 19. Sodium 131. -Urinalysis with specific gravity of 1.001 however. Does not make sense. Serum osmolality 294. Urine osmolality 106. Urine sodium 29. -Given IV fluids as above. -Will repeat serum and urine sodium levels -Continue to monitor. DVT Prophylaxis: teds/SCDs Discharge Planning Pending evaluation by gastroenterology. Kia Armijo PA-C Jun 04, 2017 10:03 am
[2017-06-04 12:25] VITALS: BP 145/70; PULSE 67; RESP 20; TEMP 98.2; O2SAT 97
[2017-06-04 13:09] LABS: ALBUMIN 3.9 GM/DL (3.4-5.0); ALKALINE PHOSPHATASE 55 U/L (45-117); ALT (GPT) 19 U/L (10-53); AST (GOT) 23 U/L (15-37); BICARBONATE 28.9 MEQ/L (21.0-32.0); BLOOD UREA NITROGEN 12 MG/DL (7-18); CALCIUM 9.2 MG/DL (8.5-10.1); CHLORIDE 104 MEQ/L (98-107); CREATININE 1.08 MG/DL (0.50-1.00); GLOMERULAR FILTRATION RATE 48 ML/MIN (>89); GLUCOSE,RANDOM 105 MG/DL (74-106); SODIUM (NA) 141 MEQ/L (136-145); TOTAL BILIRUBIN ADULT 0.4 MG/DL (0.2-1.0); TOTAL PROTEIN 7.8 GM/DL (6.4-8.2)
--- NOTE | 2017-06-04 16:10 | MB ---
cc: GWEN MCFADDEN M.D., DONATO R. M.D. LARRAZABAL, PATRICK DATE OF : 1925 DATE OF CONSULTATION: 06/04/2017 HISTORY OF PRESENT ILLNESS: The patient is an 89-year-old white female I was asked to see for further evaluation and management of pancreatitis. A few weeks ago she was in [place] and developed bronchitis and was given some type of medication for it. She was also found to have hypertension, was given a blood pressure pill that caused vertigo. That medication was stopped and she was given hydrochlorothiazide which did not agree with her. Apparently lab studies in [place] and again here revealed elevated lipase levels. She has had no abdominal pain, just some mild indigestion, worse with intake of fatty foods and acidic foods. She has lost about six pounds over the past two weeks inadvertently. She believes she may have had some mild early satiety. PAST MEDICAL HISTORY: Her medical history is significant for hypertension and hyperlipidemia, on no medications, possible history of pancreatitis. PAST SURGICAL HISTORY Left inguinal herniorrhaphy. MEDICATIONS ON ADMISSION 1. Hydrochlorothiazide 25 mg daily. 2. Pantoprazole 40 mg daily. 3. Multivitamin. 4. Full strength aspirin daily. ALLERGIES/REACTIONS: ATORVASTATIN CLARITHROMYCIN. EZETIMIBE OMEPRAZOLE CIPROFLOXACIN. MECLIZINE RED DYE AMLODIPINE LISINOPRIL SOCIAL HISTORY: Tobacco use, none. Alcohol use, none. FAMILY HISTORY: Mother had a heart attack, father had a stroke. REVIEW OF SYSTEMS: No headaches, just some vertigo, no history of seizures or strokes. No vision difficulties. No auditory problems. No dysphagia or odynophagia. No chest pains or palpitations. No urinary symptoms. No bowel irregularities. She has had the weight loss as mentioned. Her last colonoscopy was performed December 2013, mild diverticulosis was noted with grade 1 internal hemorrhoids. PHYSICAL EXAMINATION: Her weight is 58 kg, temperature of 98.2, pulse 67, respiratory 20, blood pressure 145/70. Oxygen saturation 97% on room air. GENERAL: She is alert. She is oriented x3. She is anicteric. HEENT: Extraocular motions are intact. She is in no distress appreciate no submandibular, cervical, supraclavicular, axillary or epitrochlear adenopathy. LUNGS: Clear to auscultation. HEART: Regular rate and rhythm with a 1/6 murmur. ABDOMEN: Good bowel sounds with no appreciable bruit. The abdomen is soft. There is minimal epigastric tenderness. No masses or hepatosplenomegaly are noted. EXTREMITIES: No pedal edema, Dupuytren's contractures or palmar erythema. IMAGING STUDIES: Recent outpatient ultrasound revealed a normal-appearing pancreas, the liver appeared normal with a few cysts and one 5 millimeter lesion suggestive of hemangioma. The kidneys appear normal. LABORATORY DATA: On admission yesterday, sodium 131, potassium 3.9, BUN 19, creatinine 1.07. Liver enzymes all normal. Lipase 508. Today's labs, sodium 141, potassium 4.5, BUN 12, creatinine 1.08. Liver enzymes normal. Lipase was not repeated. INR 1.1. White count yesterday 4.6, hemoglobin 4.3, platelets 208. Urinalysis: trace occult blood. IMPRESSION/PLAN: 1. Hypertension, which is what brought her into the hospital, systolic measurements over 200. 2. Hyperlipasemia, with no pain suggestive of pancreatitis and no radiologic imaging suggesting pancreatitis. At this point I do not suspect she has pancreatitis. The elevated lipase may be related to her medications including hydrochlorothiazide. She has mild dyspeptic symptoms. Assuming her blood pressure is under control, she may be discharged home from a GI standpoint and we can schedule outpatient panendoscopy. Depending on the findings there, CT scanning could be considered subsequently. ADDENDUM: I spoke with the patient and the blood pressure medication she had been taking was amlodipine. This has been recorded caused pancreatitis (even though this no radiologic evidence of pancreatitis the elevated lipase suggests some degree at this other level) as well as vertigo and a sensation of feeling hot and feeling cold, all of which she has been experiencing. I suggest avoiding amlodipine and trying to find alternate product to control her blood pressure and may not cause side effects. No further evaluation is necessary for the pancreas. There is no need for an MRI or a CT. Separately, with respect to the ultrasound showing liver cysts and a 5 mm echogenic lesion, suggestive of the hemangioma, no further testing is actually necessary for that either. I suggest famotidine for dyspeptic symptoms, 20 mg b.i.d. We will be happy to see her in the office after a blood pressure is under control. Gwen Cormier detail. She has not been taking the hydrochlorothiazide. She has only taken one dose if after weak all night urinating. On this medication. She also be avoided because it could also cause pancreatitis. MD KLAUS Marie/ABDIAZIZ /3:12 PM /8:26 AM
[2017-06-04 16:25] VITALS: BP 206/96; PULSE 72; RESP 24; TEMP 98.5; O2SAT 99
[2017-06-04] MEDS: cloNIDine HCL 0.1 MG TAB PO PRN ×2 (16:46)
[2017-06-04 18:41] VITALS: BP 145/75
[2017-06-04 20:13] VITALS: BP 167/75; PULSE 72; RESP 18; TEMP 98.2; O2SAT 97
[2017-06-04] MEDS: FAMOTIDINE 20 MG TAB PO SCH ×2 (21:14)
[2017-06-05 00:23] VITALS: BP 147/72; PULSE 68; RESP 18; TEMP 98.2; O2SAT 97
[2017-06-05 03:00] VITALS: BP 163/77; PULSE 65; RESP 18; TEMP 98.3; O2SAT 97
[2017-06-05 06:56] LABS: AUTOMATED NEUTROPHIL # 2.4 TH/MM3 (1.8-7.7); EOSINOPHIL # 0.1 TH/MM3 (0-0.4); EOSINOPHIL % 3.1 % (0.0-4.0); HEMATOCRIT 37.3 % (35.0-46.0); HEMOGLOBIN 12.4 GM/DL (11.6-15.3); LYMPH % 25.1 % (9.0-44.0); MEAN CELL VOLUME 87.9 FL (80.0-100.0); MEAN CORPUSCULAR HEMOGLOBIN 29.2 PG (27.0-34.0); MEAN CORPUSCULAR HGB CONC 33.2 % (32.0-36.0); MEAN PLATELET VOLUME 8.9 FL (7.0-11.0); MONO % 8.2 % (0.0-8.0); MONOCYTE # 0.3 TH/MM3 (0-0.9); NEUT % 62.6 % (16.0-70.0); PLATELET COUNT 203 TH/MM3 (150-450); RED BLOOD COUNT 4.24 MIL/MM3 (4.00-5.30); RED CELL DISTRIBUTION WIDTH 14.2 % (11.6-17.2); WHITE BLOOD COUNT 3.9 TH/MM3 (4.0-11.0)
[2017-06-05 07:20] VITALS: BP 155/70; PULSE 57; RESP 22; TEMP 98.2; O2SAT 98
[2017-06-05 07:23] LABS: ALBUMIN 3.2 GM/DL (3.4-5.0); ALKALINE PHOSPHATASE 47 U/L (45-117); ALT (GPT) 17 U/L (10-53); AST (GOT) 16 U/L (15-37); BICARBONATE 28.9 MEQ/L (21.0-32.0); BLOOD UREA NITROGEN 13 MG/DL (7-18); CALCIUM 8.7 MG/DL (8.5-10.1); CHLORIDE 106 MEQ/L (98-107); CREATININE 1.03 MG/DL (0.50-1.00); GLOMERULAR FILTRATION RATE 50 ML/MIN (>89); GLUCOSE,RANDOM 91 MG/DL (74-106); SODIUM (NA) 140 MEQ/L (136-145); TOTAL BILIRUBIN ADULT 0.4 MG/DL (0.2-1.0); TOTAL PROTEIN 6.5 GM/DL (6.4-8.2)
[2017-06-05] MEDS: FAMOTIDINE 20 MG TAB PO SCH ×2 (08:01)
[2017-06-05] MEDS: SODIUM CHLOR 0.9% 1000 ML INJ 1,000 ML IV SCH ×2 (08:01)
[2017-06-05] MEDS: ASPIRIN 325 MG TAB PO SCH ×2 (08:01)
[2017-06-05] MEDS: SODIUM CHLORIDE 0.9% FLUSH 10 ML FLUSH IV FLUSH SCH ×2 (08:02)
--- NOTE | 2017-06-05 10:25 | HHI.GIFU ---
GI Follow-up Note Consult Follow-up Subjective: Patient laying in bed comfortably. no n/v/abd pain/dyspepsia/GERD Objective: PHYSICAL EXAMINATION: 155/70-57-22 No fever CHEST: Chest is clear to auscultation and percussion. CARDIAC: Regular rate and rhythm with no murmur gallop or rubs. ABDOMEN: Soft, nondistended, nontender; no hepatosplenomegaly; bowel sounds are present in all four quadrants. EXTREMITIES: No edema. SKIN: no jaundice. ELECTRIFICATION ADVISER: alert and oriented times three. Available Data (labs, X- Rays, Procedues) : ASSESSMENT/PLAN: 1. elevated lipase with no clinical pancreatitis. ? meds ? renal insuff ? 2. HTN PLAN: 1. no further GI w/u planned as inpt (see Dr. King consult also) 2. F/U with Dr. Kunz as an outpt It was a pleasure seeing Laurita Koo. Thank you for this consult. Entered by: Connor Krishnamurthy MD Jun 05, 2017 10:25
--- NOTE | 2017-06-05 10:25 | HHI.GIFU ---
GI Follow-up Note Consult Follow-up Subjective: Patient laying in bed comfortably. no n/v/abd pain/dyspepsia/GERD Objective: PHYSICAL EXAMINATION: 155/70-57-22 No fever CHEST: Chest is clear to auscultation and percussion. CARDIAC: Regular rate and rhythm with no murmur gallop or rubs. ABDOMEN: Soft, nondistended, nontender; no hepatosplenomegaly; bowel sounds are present in all four quadrants. EXTREMITIES: No edema. SKIN: no jaundice. SHIP WIRER: alert and oriented times three. Available Data (labs, X- Rays, Procedues) : ASSESSMENT/PLAN: 1. elevated lipase with no clinical pancreatitis. ? meds ? renal insuff ? 2. HTN PLAN: 1. no further GI w/u planned as inpt (see Dr. King consult also) 2. F/U with Dr. Kunz as an outpt It was a pleasure seeing Laurita Koo. Thank you for this consult. Entered by: Connor Krishnamurthy MD Jun 05, 2017 10:25
--- NOTE | 2017-06-05 10:25 | HHI.GIFU ---
GI Follow-up Note Consult Follow-up Subjective: Patient laying in bed comfortably. no n/v/abd pain/dyspepsia/GERD Objective: PHYSICAL EXAMINATION: 155/70-57-22 No fever CHEST: Chest is clear to auscultation and percussion. CARDIAC: Regular rate and rhythm with no murmur gallop or rubs. ABDOMEN: Soft, nondistended, nontender; no hepatosplenomegaly; bowel sounds are present in all four quadrants. EXTREMITIES: No edema. SKIN: no jaundice. ALARM OPERATOR: alert and oriented times three. Available Data (labs, X- Rays, Procedues) : ASSESSMENT/PLAN: 1. elevated lipase with no clinical pancreatitis. ? meds ? renal insuff ? 2. HTN PLAN: 1. no further GI w/u planned as inpt (see Dr. King consult also) 2. F/U with Dr. Kunz as an outpt It was a pleasure seeing Laurita Koo. Thank you for this consult. Entered by: Connor Krishnamurthy MD Jun 05, 2017 10:25
[2017-06-05] MEDS ORDERED: HYDR-3799 PO ×2 (11:52)
[2017-06-05] MEDS ORDERED: CLON.1 PO ×2 (11:52)
[2017-06-05] MEDS ORDERED: ASPI81TA11 PO ×2 (11:52)
--- NOTE | 2017-06-05 11:53 | HHI.PR ---
Subjective Remarks Follow-up for accelerated hypertension, abdominal pain. Patient is currently doing well. Denies any chest pain, shortness of breath, fever or chills. Denies any abdominal pain. She is tolerating diet well. Objective Vitals Vital Signs Date Time Temp Pulse Resp B/P (MAP) Pulse Ox O2 Delivery O2 Flow Rate FiO2 06/05/17 07:20 98.2 57 22 155/70 (98) 98 06/05/17 03:00 98.3 65 18 163/77 (105) 97 06/05/17 00:23 98.2 68 18 147/72 (97) 97 06/04/17 20:13 98.2 72 18 167/75 (105) 97 06/04/17 18:41 145/75 (98) Automatic Cuff 06/04/17 16:25 98.5 72 24 206/96 (132) 99 06/04/17 12:25 98.2 67 20 145/70 (95) 97 I/O 06/04/17 06/04/17 06/04/17 06/05/17 06/05/17 06/05/17 07:00 15:00 23:00 07:00 15:00 23:00 Intake Total 240 ml 95 ml 950 ml Balance 240 ml 95 ml 950 ml Intake Oral 240 ml IV Total 95 ml 950 ml # Voids 4 1 Result Diagram: 06/05/1734 06/05/17 0634 Objective Remarks GENERAL: Alert, oriented 3, NAD. SKIN: Warm and dry. HEAD: Normocephalic. EYES: No scleral icterus. No injection or drainage. NECK: Supple, trachea midline. No JVD or lymphadenopathy. CARDIOVASCULAR: Regular rate and rhythm without murmurs, gallops, or rubs. RESPIRATORY: Breath sounds equal bilaterally. No accessory muscle use. GASTROINTESTINAL: Abdomen soft, non-tender, nondistended. MUSCULOSKELETAL: No cyanosis, or edema. BACK: Nontender without obvious deformity. No CVA tenderness. Procedures None A/P Problem List: (1) Accelerated hypertension ICD Code: I10 - Essential (primary) hypertension (2) Hyponatremia ICD Code: E87.1 - Hypo-osmolality and hyponatremia Assessment and Plan 89-year-old female with history of hypertension, hyperlipidemia, and recurrent pancreatitis presents with epigastric pain, nausea, decreased appetite, and elevated blood pressure. - Abdominal pain - no clinical or lab evidence of pancreatitis. GI recommended no further studies for pancreatitis. - Accelerated hypertension - Patient reports adverse reaction to multiple blood pressure medications including amlodipine, lisinopril. - We'll start patient on hydralazine 25 mg twice a day upon discharge - We'll also continue clonidine 0.1 mg every 6 hours when necessary for blood pressure is 180/90. - Hypovolemic hyponatremia - Currently resolved with fluid repletion. Full code. Ambulation. Tony Kapoor DO Jun 05, 2017 11:53 am
[2017-06-05 11:59] VITALS: BP 197/85; PULSE 60; RESP 22; TEMP 98.2; O2SAT 99
[2017-06-05 12:14] VITALS: BP 186/81
[2017-06-05] MEDS: cloNIDine HCL 0.1 MG TAB PO PRN ×2 (12:15)
[2017-06-05 13:06] VITALS: BP 146/68; PULSE 59; O2SAT 95
== END 2017-06-05 15:12 | disposition home or self-care (01) ==
LOC: NEPE 21:58 → NEDA 06-04 01:37 → NEPGCP 06-04 03:07
PROVIDERS: ADMIT Hospitalist; ATTEND Hospitalist
DX: K86.1 Other chronic pancreatitis (principal); E87.1 Hypo-osmolality and hyponatremia; I10 Essential (primary) hypertension; E78.5 Hyperlipidemia, unspecified; R79.1 Abnormal coagulation profile
CPT/HCPCS: 80053; 81001; 82570; 83690; 83880; 83930; 83935; 84300; 85025; 85610; 96361; 96374; 96375; 99285; G0378; J2270; J2405; J7030

== ENCOUNTER 2017-06-15 10:11 | Emergency (ER) | payer MEDICARE, BC ==
[~2017-06-15] VITALS: Ht 152.4 cm; Wt 57.4 kg
[~2017-06-15 10:11] MED LIST changes: -ASPI325T PO; +ASPI81TA23 PO; +CLON.1 PO; +HYDR-3799 PO; -HYDR25TA5 PO; -PANT40TA3 PO
[2017-06-15 10:31] VITALS: BP 161/67; PULSE 81; RESP 16; TEMP 98.2; O2SAT 97
--- NOTE | 2017-06-15 11:03 | PD ---
HPI Chief Complaint: Dizziness Time Seen by Provider: 11:02 Travel History International Travel<30 days: No Contact w/Intl Traveler<30days: No Traveled to known affect area: No History of Present Illness HPI 89-year-old female came to the emergency room looking very anxious because after she took her newly started blood pressure medication she got very lightheaded and clammy. Patient says that she was discharged from the hospital at the [facility] yesterday. Her blood pressure medication was changed and the new medication that was started was hydralazine and clonidine when necessary. Patient says this morning she took the hydralazine which made her feel this way. When she came to the emergency room her blood pressure was in 160s systolic. Patient seemed extremely anxious. She says that she has been battling with high blood pressure since past one month and seems like nothing is working. She is here to find out the best pill she can take for her blood pressure. Patient is awake and answering questions appropriately but very anxious. Patient denies of any chest pain or headache. No syncopal episode. [facility] Past Medical History Narrative Medical List of her past medical, surgical, social and family history is reviewed from the nursing note. Hx Anticoagulant Therapy: Yes (asa 81mg) Blood Disorders: No Anxiety: Yes Depression: No Heart Rhythm Problems: No Cancer: Yes (SKIN CANCER TO NOSE) Cardiovascular Problems: Yes (htn on meds) High Cholesterol: Yes Chest Pain: No Congestive Heart Failure: No Diminished Hearing: No Endocrine: No Genitourinary: Yes (FREQUENCY ) Hypertension: Yes Immune Disorder: No Inguinal Hernia: Yes Musculoskeletal: No Neurologic: No Psychiatric: Yes Respiratory: No ?: Not Menopausal: Yes Past Surgical History Abdominal Surgery: Yes (left inguinal hernia) Social History Alcohol Use: No Tobacco Use: No (QUIT 40YRS AGO) Substance Use: No Allergies-Medications (Allergen,Severity, Reaction): Coded Allergies: atorvastatin (Unverified Allergy, Severe, LEG PAIN, 06/15/17) clarithromycin (Unverified Allergy, Severe, RASH, 06/15/17) ezetimibe (Unverified Allergy, Intermediate, TACHYCARDIA, 06/15/17) omeprazole (Unverified Allergy, Unknown, unknown, 06/15/17) ciprofloxacin (Unverified Adverse Reaction, Severe, "DIZZY", 06/15/17) meclizine (Unverified Adverse Reaction, Intermediate, MORE DIZZY , ) red dye (Unverified Adverse Reaction, Intermediate, DIZZY/RASH, 06/15/17) amlodipine (Verified Adverse Reaction, Unknown, Dizziness, 06/15/17) lightheaded lisinopril (Verified Adverse Reaction, Unknown, Dizziness, 06/15/17) Uncoded Allergies: PCE (Allergy, Severe, RASH, 12/15/16) . Q TUSS (Allergy, Severe, NAUSEA, 12/15/16) . Comments List of her allergies reviewed from the nursing note. Reported Meds & Prescriptions Reported Meds & Active Scripts Active Aspirin EC (Aspirin) 81 Mg Tabdr 81 Mg PO DAILY Hydralazine HCl 25 Mg Tablet 25 Mg PO BID Catapres (Clonidine) 0.1 Mg Tab 0.1 Mg PO Q6H PRN Reported Multi-Vitamin Daily (Multiple Vitamin) 1 Tab Tab 1 Tab PO DAILY Narrative Medication List of her home medications reviewed from the nursing note. Review of Systems Except as stated in HPI: all other systems reviewed are Neg Neurologic: Positive: Weakness Physical Exam Narrative GENERAL: Awake, alert, elderly, anxious but in no distress SKIN: Focused skin assessment warm/dry. HEAD: Atraumatic. Normocephalic. EYES: Pupils equal and round. No scleral icterus. No injection or drainage. ENT: No nasal bleeding or discharge. Mucous membranes pink and moist. NECK: Trachea midline. No JVD. CARDIOVASCULAR: Regular rate and rhythm. No murmur appreciated. RESPIRATORY: No accessory muscle use. Clear to auscultation. Breath sounds equal bilaterally. GASTROINTESTINAL: Abdomen soft, non-tender, nondistended. Hepatic and splenic margins not palpable. MUSCULOSKELETAL: No obvious deformities. No clubbing. No cyanosis. No edema. NEUROLOGICAL: Awake and alert. No obvious cranial nerve deficits. Motor grossly within normal limits. Normal speech. No focal deficit PSYCHIATRIC: Appropriate mood and affect; insight and judgment normal. Data Data Last Documented VS Vital Signs Date Time Temp Pulse Resp B/P (MAP) Pulse Ox O2 Delivery O2 Flow Rate FiO2 06/15/17 12:53 66 18 132/69 (90) 97 06/15/17 11:43 Room Air 06/15/17 10:31 98.2 Orders Orders Electrocardiogram (06/15/17 11:15) Complete Blood Count With Diff (06/15/17 11:15) Basic Metabolic Panel (Bmp) (06/15/17 11:15) Troponin I (06/15/17 11:15) Ct Brain W/O Iv Contrast(Rout) (06/15/17 11:15) Ecg Monitoring (06/15/17 11:15) Iv Access Insert/Monitor (06/15/17 11:15) Oximetry (06/15/17 11:15) Sodium Chloride 0.9% Flush (Ns Flush) (06/15/17 11:15) Alprazolam (Xanax) (06/15/17 11:15) Ed Discharge Order (06/15/17 12:18) Labs Laboratory Tests Test 06/15/17 11:32 White Blood Count 5.4 TH/MM3 Red Blood Count 4.13 MIL/MM3 Hemoglobin 11.8 GM/DL Hematocrit 35.3 % Mean Corpuscular Volume 85.5 FL Mean Corpuscular Hemoglobin 28.6 PG Mean Corpuscular Hemoglobin Concent 33.4 % Red Cell Distribution Width 13.7 % Platelet Count 184 TH/MM3 Mean Platelet Volume 8.5 FL Neutrophils (%) (Auto) 78.6 % Lymphocytes (%) (Auto) 13.9 % Monocytes (%) (Auto) 6.0 % Eosinophils (%) (Auto) 0.8 % Basophils (%) (Auto) 0.7 % Neutrophils # (Auto) 4.3 TH/MM3 Lymphocytes # (Auto) 0.8 TH/MM3 Monocytes # (Auto) 0.3 TH/MM3 Eosinophils # (Auto) 0.0 TH/MM3 Basophils # (Auto) 0.0 TH/MM3 CBC Comment DIFF FINAL Differential Comment Blood Urea Nitrogen 17 MG/DL Creatinine 1.30 MG/DL Random Glucose 88 MG/DL Calcium Level 8.3 MG/DL Sodium Level 137 MEQ/L Potassium Level 4.0 MEQ/L Chloride Level 105 MEQ/L Carbon Dioxide Level 24.6 MEQ/L Anion Gap 7 MEQ/L Estimat Glomerular Filtration Rate 39 ML/MIN Troponin I LESS THAN 0.02 NG/ML MDM Medical Decision Making Medical Screen Exam Complete: Yes Emergency Medical Condition: Yes Medical Record Reviewed: Yes Interpretation(s) Twelve-lead EKG was reviewed by me. Normal sinus rhythm, normal axis, nonspecific ST-T wave changes. Heart rate of 64 bpm. Differential Diagnosis Medication reaction, anxiety Narrative Course 2:16 PM blood pressure has remained steady. I gave patient Xanax for her anxiety. Blood test results of back and within normal limits. CT scan of her head shows an old lacunar infarct but nothing acute. At this point I have no other recommendation beside she needs to follow up with her primary care. Procedures EKG Prior to Arrival: No Diagnosis Primary Impression: Anxiety Referrals: Primary Care Physician 2 days Additional Instructions: Please follow-up with your primary care on Saturday. Your blood pressure remained steady and stable in the emergency room. I am not recommending changing the newly started blood pressure medication at this point. Med/Other Pt SpecificInfo: No Change to Meds Disposition: 01 DISCHARGE HOME Condition: Stable Dale Robles MD Jun 15, 2017 11:03
[2017-06-15] MEDS ORDERED: ALPRAZolam 0.25 MG TAB PO ONE (11:15)
[2017-06-15] MEDS ORDERED: SODIUM CHLORIDE 0.9% FLUSH 10 ML FLUSH IVF PRN (11:15)
[2017-06-15 11:42] LABS: AUTOMATED NEUTROPHIL # 4.3 TH/MM3 (1.8-7.7); BASOPHIL % 0.7 % (0.0-2.0); EOSINOPHIL % 0.8 % (0.0-4.0); HEMATOCRIT 35.3 % (35.0-46.0); HEMO FLAGS DIFF FINAL; LYMPH % 13.9 % (9.0-44.0); LYMPHOCYTE # 0.8 TH/MM3 (1.0-4.8); MEAN CELL VOLUME 85.5 FL (80.0-100.0); MEAN CORPUSCULAR HEMOGLOBIN 28.6 PG (27.0-34.0); MEAN CORPUSCULAR HGB CONC 33.4 % (32.0-36.0); NEUT % 78.6 % (16.0-70.0); PLATELET COUNT 184 TH/MM3 (150-450); RED BLOOD COUNT 4.13 MIL/MM3 (4.00-5.30); RED CELL DISTRIBUTION WIDTH 13.7 % (11.6-17.2); WHITE BLOOD COUNT 5.4 TH/MM3 (4.0-11.0)
[2017-06-15 11:43] VITALS: BP 163/91; PULSE 67; RESP 18; O2SAT 97
[2017-06-15 11:52] LABS: CHLORIDE 105 MEQ/L (98-107); SODIUM (NA) 137 MEQ/L (136-145)
[2017-06-15 11:55] LABS: ANION GAP 7 MEQ/L (5-15); BICARBONATE 24.6 MEQ/L (21.0-32.0); BLOOD UREA NITROGEN 17 MG/DL (7-18)
[2017-06-15 11:58] LABS: GLOMERULAR FILTRATION RATE 39 ML/MIN (>89)
--- NOTE | 2017-06-15 12:10 | RADRPT ---
EXAM DATE/TIME: 06/15/2017 11:45 [facility] COMPARISON: CT BRAIN W/O CONTRAST, May 03, 2011, 13:05. INDICATIONS : Dizzy. Taking new BP medication. RADIATION DOSE: 53.51 CTDIvol (mGy) MEDICAL HISTORY : Hypertension. Cardiovascular disease SURGICAL HISTORY : Inguinal hernia repair. ENCOUNTER: Initial ACUITY: 1 day PAIN SCALE: 0/10 LOCATION: cranial TECHNIQUE: Multiple contiguous axial images were obtained of the head. Using automated exposure control and adj ustment of the mA and/or kV according to patient size, radiation dose was kept as low as reasonably a chievable to obtain optimal diagnostic quality images. DICOM format image data is available electro nically for review and comparison. FINDINGS: CEREBRUM: An old lacunar infarct is identified in the left basal ganglia. Cerebral hemispheres are otherwise st able. There is no evidence of acute infarct, hemorrhage, mass or edema. CSF spaces are stable. POSTERIOR FOSSA: The cerebellum and brainstem are intact. The 4th ventricle is midline. The cerebellopontine angle i s unremarkable. EXTRACRANIAL: The visualized portion of the orbits is intact. SKULL: The calvaria is intact. No evidence of skull fracture. CONCLUSION: 1. 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 2. No evidence of acute infarct, hemorrhage, mass or edema. Miguel Benson MD on June 15, 2017 at 12:06 Board Certified Radiologist. This report was verified electronically.
[2017-06-15 12:53] VITALS: BP 132/69
--- NOTE | 2017-06-16 13:16 | EKG ---
Date Performed: 06/15/2017 Time Performed: 11:39:52 PTAGE: 89 years EKG: Sinus rhythm NORMAL ECG NO PREVIOUS TRACING DOCTOR: Alhaji Schmidt Interpretating Date/Time 06/17/2017 07:05:46
== END 2017-06-15 13:08 | disposition home or self-care (01) ==
LOC: PHED 10:11
DX: F41.9 Anxiety disorder, unspecified (principal); I10 Essential (primary) hypertension; E78.00 Pure hypercholesterolemia, unspecified; Z79.82 Long term (current) use of aspirin; Z86.59 Personal history of other mental and behavioral disorders; Z87.448 Personal history of other diseases of urinary system; Z87.39 Personal history of other diseases of the musculoskeletal system and connective tissue; Z85.828 Personal history of other malignant neoplasm of skin
CPT/HCPCS: 70450; 80048; 84484; 85025; 93005; 99285